=== PATIENT | female | born 1970 | race Caucasian/White ===

== ENCOUNTER → 2017-06-06 | Outpatient (CLI) | payer OTHER ==
--- NOTE | 2017-06-06 14:33 | RAD ---
Examination: 2 views of the left wrist and left forearm History: History of injury 3 weeks back, pain Comparison: None available Findings Severe degenerative changes identified in the carpometacarpal joints. Evaluation of the wrist is limited as only 2 views were obtained. On the frontal view there appears to be a mild oblique lucent line projecting over the distal aspect of the second metacarpal could be a minimally displaced fracture. This is only visualized on single view and is not completely included on the other views The alignment of the radius, ulna grossly appears unremarkable Impression: 1. Oblique lucent line projects over the distal aspect of the second metacarpal could be a minimally displaced fracture. This is only visualized on single view and is not completely included on the other views. Recommend 3 views of the hand. Additionally repeat 3 view wrist radiographs is recommended. 2. Severe degenerative changes identified in the carpometacarpal joints.
== END | disposition home or self-care (01) ==
LOC: DXRAD 13:34
PROVIDERS: ATTEND Family Medicine
DX: M19.042 Primary osteoarthritis, left hand (principal)
CPT/HCPCS: 73090; 73100

== ENCOUNTER → 2019-09-18 | Outpatient (CLI) | payer OTHER ==
--- NOTE | 2019-09-21 17:39 | RAD ---
DATE: 09/18/2019 EXAM: MAMMO FABIEN SCREENING BILATERAL HISTORY: Routine screening COMPARISON: 07/09/2012, 02/24/2016 mammographic exams This study was interpreted with the benefit of Computerized Aided Detection (CAD). Breast Density: SCATTERED The breast parenchyma shows scattered fibroglandular densities. Breast parenchyma level B. FINDINGS: No suspicious calcification, mass, or distortion. Few benign-appearing punctate calcifications. IMPRESSION: Unremarkable BI-RADS CATEGORY: 1 NEGATIVE RECOMMENDED FOLLOW-UP: 12M 12 MONTH FOLLOW-UP PQRS compliance statement: Patient information was entered into a reminder system with a target due date for the next mammogram. Mammography is a sensitive method for finding small breast cancers, but it does not detect them all and is not a substitute for careful clinical examination. A negative mammogram does not negate a clinically suspicious finding and should not result in delay in biopsying a clinically suspicious abnormality. "Our facility is accredited by the [employer] Mammography Program."
== END | disposition home or self-care (01) ==
LOC: MAMMO 10:06
PROVIDERS: ATTEND Family Medicine
DX: Z12.31 Encounter for screening mammogram for malignant neoplasm of breast (principal); N64.89 Other specified disorders of breast
CPT/HCPCS: 77063; 77067

== ENCOUNTER 2020-03-30 11:05 | Emergency (ER) | payer MEDICARE, OTHER ==
[~2020-03-30] VITALS: Ht 162.6 cm; Wt 55.0 kg
[2020-03-30 11:21] VITALS: BP 135/90
[2020-03-30] MEDS ORDERED: AMOX500C PO (11:31)
[2020-03-30] MEDS ORDERED: DICL50TA4 PO (11:31)
--- NOTE | 2020-03-30 11:32 | PHYS DOC ---
Past History Past Medical History: Arthritis, Asthma, Hypertension Past Surgical History: No Surgical History Smoking: Non-smoker Alcohol Use: Rarely General Adult EDM: Chief Complaint: DENTAL PROBLEM HPI: HPI: Patient is a 50-year-old female who presents to the emergency department for evaluation of worsening dental pain. She states that she has chronically bad teeth and numerous missing teeth and has been having increasing pain, waxing and waning over the past several months, worsening over the past few days. She denies any fevers or chills or facial swelling. She states that she had a plan set up to see a dentist, but was unable to afford the initial portion of the payment plan and states she did not have a ride to the dentist. There are no alleviating or exacerbating factors to her symptoms. Review of Systems: Review of Systems: Constitutional: Denies fever or chills Eyes: Denies change in visual acuity HENT: Denies nasal congestion or sore throat Respiratory: Denies cough or shortness of breath Cardiovascular: Denies chest pain or edema Musculoskeletal: Denies back pain or joint pain Integument: Denies rash Neurologic: Denies headache, focal weakness or sensory changes Heart Score: Risk Factors: Risk Factors: DM, Current or recent (<one month) smoker, HTN, HLP, family history of CAD, obesity. Risk Scores: Score 0 - 3: 2.5% MACE over next 6 weeks - Discharge Home Score 4 - 6: 20.3% MACE over next 6 weeks - Admit for Clinical Observation Score 7 - 10: 72.7% MACE over next 6 weeks - Early Invasive Strategies Physical Exam: PE: PHYSICAL EXAM: CONSTITUTIONAL: Well developed, well nourished HEAD: normocephalic, atraumatic EENT: PERRL, EOMI. Conjunctivae normal color, sclerae non-icteric; moist mucous membranes. The anterior 2 molars and premolars are absent bilaterally on the lower jaw, they are completely absent on the right, on the left lower jaw, the decayed tooth roots remain. There is no significant gingival edema or gross exam evidence of abscess. There is no facial swelling. The area is patent. NECK: Supple, non-tender; no meningismus. LUNGS: Lungs CTA, breathing even and unlabored. Normal air movement. HEART: Regular rate and rhythm, no murmur EXTREM: Normal ROM; no deformity, no calf tenderness. Normal pulses palpable in all extremities. There is no pedal edema. SKIN: No rash; no diaphoresis NEURO: Alert; normal speech and cognition; CN's grossly intact; strength grossly intact without focal deficit. BACK: No CVA TTP. Current Patient Data: Vital Signs: Vital Signs Date Time Temp Pulse Resp B/P (MAP) Pulse Ox O2 Delivery O2 Flow Rate FiO2 03/30/20 11:21 98.4 81 18 135/90 (105) 99 Room Air EKG: EKG: [] Radiology/Procedures: Radiology/Procedures: [] Course & Med Decision Making: Course & Med Decision Making I discussed home care plan with the patient, the need for dental follow-up and return precautions. Dragon Disclaimer: Dragon Disclaimer: This electronic medical record was generated, in whole or in part, using a voice recognition dictation system. Departure Departure: Impression: Primary Impression: Pain, dental Disposition: HOME/RESIDENCE PRIOR TO ADM Condition: STABLE Referrals: YONY PICHARDO MD (PCP) Patient Instructions: Dental Caries, Dental Pain Additional Instructions: It is important that you obtain close follow-up with a dentist for definitive dental care. Return to medical care for any new or worsening symptoms. Scripts Diclofenac Sodium (DICLOFENAC SODIUM) 50 Mg Tablet.dr 1 TAB PO BID for pain, #20 TAB 1 Refill Prov: LAYTON TSAI MD 03/30/20 Amoxicillin (AMOXICILLIN) 500 Mg Capsule 1 CAP PO TID for -, #30 CAP Prov: LAYTON TSAI MD 03/30/20 Justification of Admission: Justification of Admission: Justification of Admission Dx: N/A LAYTON TSAI MD Mar 30, 2020 11:32
== END 2020-03-30 11:35 | disposition home or self-care (01) ==
LOC: ER 11:05
DX: K08.89 Other specified disorders of teeth and supporting structures (principal); K02.9 Dental caries, unspecified
CPT/HCPCS: 99283